=== PATIENT | male | born 1980 | race Caucasian/White ===

== ENCOUNTER 2016-09-16 06:39 | Emergency (ER) | payer MEDICAID ==
[2016-09-16 07:19] VITALS: BP 120/68
--- NOTE | 2016-09-16 07:35 | ED Physician Chart ---
Chief Complaint/HPI - Patient Information Date Seen:: 09/16/16 Time Seen:: 07:33 Chief Complaint:: EPIGASTRIC PAIN THIS AM History of Present Illness:: THIS 36 YO MALE HAD A CHOLECYSTECTOMY 5 YRS AGO AND HAS RECURRENT ABD PAIN SINCE. THE PAIN IS IN THE EPIGASTRIC AND RUQ AREAS AND DOES NOT RADIATE INTO THE BACK. THE PATIENT HAS MILD NAUSEA AND NO VOMITING OR DIARRHEA. HE DENIES ANY CHEST PAIN OR SHORTNESS OF BREATH. HE DOES NOTE THAT THE PAIN GETS WORSE IF HE TAKES A DEEP BREATH. HE RATES THE SEVERITY OF THE PAIN A 3/10 AND IT IS A SHARP PAIN. NO HX OF FEVER OR CHILLS. NO DYSURIA OR HEMATURIA. Allergies:: Allergies Allergy/AdvReac Type Severity Reaction Status Date / Time No Known Allergies Allergy Verified 09/16/16 07:18 Vitals:: Vital Signs - 8 hr 09/16/16 09/16/16 07:00 07:18 Temp 98 F HR 74 RR 20 BP 121/68 120/68 O2 Sat % 100 Review of Systems - Review of Systems General/Constitutional: No fever, No chills, No weakness, No diaphoresis Skin: No skin lesions, No bruising Head: No headache, No light-headedness Eyes: No loss of vision, No diplopia ENT: No earache, No nasal drainage, No sore throat, No tinnitus Neck: No neck pain, No swelling, No stiffness, No mass noted Pulmonary: No SOB, No sputum, No wheezing GI: Nausea, No vomiting, No diarrhea, Pain, No hematemesis G/U: No dysuria, No frequency, No hematuria Musculoskeletal: Bone or joint pain, No back pain, No muscle pain Psychiatric: Prior psych history, No depression, No suicidal ideation Hematopoietic: No bruising, No lymphadenopathy Allergic/Immuno: No urticaria, No angioedema Neurological: No syncope, No focal symptoms, No weakness, No headache, No seizure, No dizziness, No confusion, No vertigo Past Medical History - Past Medical History Social History: Smoker, No Alcohol, No Drug Use, Other (LIVES WITH GIRL FRIEND) Surgical History: Cholecystectomy Family Medical History - Family Member Mother History Unknown: Yes Living Status: Still Living Hx Family Hypertension: Yes Physical Exam - Physical Examination General/Constitutional: Awake, Well-developed, well-nourished, Alert, Non-toxic appearing, Ambulatory Other Gen/Cons comments:: MILD DISTRESS FROM COMPLAINED OF ABD PAIN. Head: Atraumatic Eyes: Lids, conjuctiva normal, PERRL, EOMI Other Eyes comments:: NO JAUNDICE OR NYSTAGMUS ENMT: External ears, nose nl, Nasal exam nl, Lips, teeth, gums nl, Oropharynx nl , Tonsils nl Other ENMT comments:: MULTIPLE MISSING TEETH. Neck: Nontender, Full ROM w/o pain, No JVD, No nuchal rigidity, No mass Cardio Vascular: RRR, No murmur, gallop, rubs, NL S1 S2 Other Cardio Vascular comments:: GOOD PULSES IN ALL 4 EXTREMITIES. Other GI comments:: THE ABD IS FLAP WITH WELL HEALED LAPROSCOPIC SCARS IN THE UPPER ABDOMEN. NORMAL BOWEL SOUNDS. MILD RUQ AND EPIGASTRIC TENDERNESS WITHOUT ASSOCIATED REBOUND OR GUARDING. NO MASSES OR ORGANOMEGALY. NO HERNIAS. : No CVA tenderness, NL external genitalia, No discharge Extremities: No tenderness or effusion, Full ROM, normal strength in all extremities, No edema Other Extremities comments:: GOOD PULSES IN ALL 4 EXTREMITIES. Neuro/Psych: Alert/oriented, Normal sensory exam, Normal motor strength, Judgement/insight normal, Mood normal, Normal gait, No focal deficits Misc: Normal back, No paraspinal tenderness Labs/Radiology/EKG Results - Lab Results Results: Laboratory Tests 09/16/16 09/16/16 07:46 07:46 WBC 6.6 RBC 5.16 Hgb 13.5 Hct 41.3 MCV 80.0 MCH 26.2 MCHC Differential 32.7 RDW 12.9 Plt Count 196 MPV 7.4 Neutrophils % 68.3 Lymphocytes % 12.6 L Monocytes % 10.0 Eosinophils % 8.7 H Basophils % 0.4 Sodium 145 Potassium 3.4 L Chloride 100 Carbon Dioxide 30.3 Anion Gap 18.1 H BUN 7 Creatinine 0.7 Est GFR ( Amer) > 60.0 Est GFR (Non-Af Amer) > 60.0 BUN/Creatinine Ratio 10.0 Glucose 98 Calcium 8.9 Total Bilirubin 0.4 AST 140 H ALT 167 H Alkaline Phosphatase 57 Total Protein 6.3 Albumin 3.7 L Globulin 2.6 Albumin/Globulin Ratio 1.4 Amylase 54 Lipase 49 LAB INTERPRETATION: CBC UNREMARKABLE. ELECTROLYTES ALL WITHIN NORMAL PARAMETERS EXCEPT MILD HYPOKALEMIA OF 3.4 WHICH IS OF NO CLINICAL SIGNIFICANCE. MILD ELEVATION OF AST AND ALT, AGAIN OF NO CLINICAL SIGNIFICANCE. NO EVIDENCE FOR ACUTE PANCREATITIS. Assessment - Assessment General Assessment: CASE SUMMARY: THIS 36 YEAR OLD MALE HAS CHRONIC EPISODES OF EPIGASTRIC AND RUQ PAIN SINCE HAVING HIS GALLBLADDER OUT 5 YEARS AGO. CURRENT EPISODE BEGAN AT 6 AM AND HAS NOW RESOLVED. HAS MILD ELEVATION OF AST AND ALT WHICH ARE OF NO CLINICAL SIGNIFICANCE. HE WAS TREATED WITH IV NORMAL SALINE, ZOFRAN AND MORPHINE WITH RESOLUTION OF ALL SX. PT ADVISED TO RETURN TO THE ED FOR ANY RECURRENCE OF SYMPTOMS. DISCHARGED IN STABLE CONDITION. MDM DDX EPIGASTRIC PAIN: NOT CHOLECYSTITIS BASED ON HX OF REMOVAL OF GALLBLADDER. NOT PANCREATITIS BASED ON NORMAL AMYLASE AND LIPASE VALUES. NOT MYOCARDIAL ISCHEMIA BASED ON PT'S HISTORY AND EXAM WITH ABDOMINAL TENDERNESS AND NO RISK FACTORS FOR CAD. ED Septic Shock - . Is Septic Shock (SBP<90, OR Lactate>4 mmol\L) present?: No - <6hrs of presentation: Vital Signs: Vital Signs - 8 hr 09/16/16 09/16/16 07:00 07:18 Temp 98 F HR 74 RR 20 BP 121/68 120/68 O2 Sat % 100 Reassessment (Disposition) - Reassessment Reassessment Condition:: Improved - Diagnosis Diagnosis:: POST CHOLECYSTECTOMY PAIN. (BILARY COLIC)
[2016-09-16 07:54] LABS: % BASOPHILS 0.4 % (0.0-2.0); % EOSINOPHILS 8.7 % (0.0-5.0); % LYMPHOCYTES 12.6 % (20.0-50.0); % NEUTROPHILS 68.3 % (40.0-80.0); HEMATOCRIT 41.3 % (39.0-49.0); HEMOGLOBIN 13.5 gm/dL (13.2-17.3); MEAN CORPUSCULAR HEMOGLOBIN 26.2 pg (26.0-30.0); MEAN CORPUSCULAR HGB CONC 32.7 pg (28.0-36.0); MEAN PLATELET VOLUME 7.4 fl; NEUTROPHILE ABSOLUTE 4.5 Th/cmm (1.8-8.0); PLATELET COUNT 196 Th/cmm (150-400); RED BLOOD COUNT 5.16 Mil/cmm (4.30-5.70); RED CELL DISTRIBUTION WIDTH 12.9 % (11.5-20.0); WHITE BLOOD COUNT 6.6 Th/cmm (4.8-10.8)
[2016-09-16] MEDS ORDERED: Sodium Chloride 0.9% 1,000 ML IV ONE (07:54)
[2016-09-16] MEDS ORDERED: Morphine Sulfate 4 mg/mL 1mL Syr ONE (07:58)
[2016-09-16 08:11] LABS: ALB/GLOB RATIO 1.4 (1.0-1.8); ALKALINE PHOSPHATASE 57 U/L (34-104); AMYLASE SERUM 54 U/L (29-103); ANION GAP 18.1 (7.0-16.0); BILIRUBIN,TOTAL 0.4 mg/dL (0.3-1.0); BUN - UREA NITROGEN 7 mg/dL (7-25); CALCIUM SERUM 8.9 mg/dL (8.6-10.3); CARBON DIOXIDE 30.3 mEq/L (21.0-31.0); CHLORIDE 100 mEq/L (98-107); CREATININE - SERUM 0.7 mg/dL (0.7-1.3); GLUCOSE 98 mg/dL (70-105); LIPASE 49 U/L (11-82); POTASSIUM SERUM 3.4 mEq/L (3.5-5.1); SGOT 140 U/L (13-39); SGPT/ALT 167 U/L (7-52); SODIUM SERUM 145 mEq/L (136-145)
[2016-09-16] MEDS ORDERED: HYDROmorphone 2 mg/mL 1mL Vial IVP STA (08:39)
== END 2016-09-16 09:25 | disposition home or self-care (01) ==
LOC: ER 06:39
DX: G89.18 Other acute postprocedural pain (principal); Z90.49 Acquired absence of other specified parts of digestive tract; F17.200 Nicotine dependence, unspecified, uncomplicated
CPT/HCPCS: 99284; 96374; 96375; 36415; 85025; 82150; 83690; 80053; J2405; J7030; Z7502